=== PATIENT | male | born 1940 | race Caucasian/White ===

== ENCOUNTER → 2017-09-08 | Outpatient (CLI) | payer OTHER ==
[~2017-09-08] MED LIST: ALTACE2.5 MG PO; ASPIR-TRIN325 M1 PO; BAYER ASPIRIN325 M1 PO; CENTRUM COMPLE1 EACH PO; COLACE100 MG PO; DELTASONE20 MG PO; LIPITOR80 MG PO; METOPROLOL SUCC25 MG PO; OMEGA 3-6-91200 MG PO; OMEPRAZOLE20 M3 PO; PERCOCET 5/31 TABLET PO; STOOL SOFTENER1 EACH PO; Toprol XL PO; Tylenol Regular Stre PO; ZETIA10 MG PO; ZITHROMAX250 MG PO
== END | disposition home or self-care (01) ==
LOC: CDC 11:25
DX: Z01.810 Encounter for preprocedural cardiovascular examination (principal); R19.5 Other fecal abnormalities; K30 Functional dyspepsia; K64.8 Other hemorrhoids; K59.00 Constipation, unspecified; I49.1 Atrial premature depolarization; R94.31 Abnormal electrocardiogram [ECG] [EKG]
CPT/HCPCS: 93000

== ENCOUNTER 2018-05-13 22:38 | Emergency (ER) | payer OTHER ==
[~2018-05-13] VITALS: Ht 182.9 cm; Wt 94.2 kg
[2018-05-13 23:00] LABS: HEMATOCRIT 42.5 % (38.0-50.0); HEMOGLOBIN 14.8 G/DL (12.5-16.6); MCH 31.2 PG (29.0-34.0); MCHC 34.8 G/DL (30.0-36.0); MCV 89.5 FL (86-99); PLATELET COUNT 215 K/uL (156-360); RBC DIS.WIDTH-CV 12.8 % (11.8-14.6); RBC DIS.WIDTH-SD 42.1 % (39-53); RED BLOOD COUNT 4.75 M/uL (4.00-5.50); WHITE BLOOD COUNT 7.8 K/uL (4.1-10.2)
[2018-05-13 23:10] LABS: ALBUMIN 4.1 g/dL (3.2-4.8)
[2018-05-13 23:13] LABS: TOTAL PROTEIN 7.3 g/dL (6.4-8.3)
[2018-05-13 23:14] LABS: TOTAL BILIRUBIN 0.7 mg/dL (0.0-1.0)
[2018-05-13 23:16] LABS: ALKALINE PHOSPHATASE 98 IU/L (3-129)
[2018-05-13 23:18] LABS: AST (GOT) 24 IU/L (2-34); DIRECT BILIRUBIN 0.3 mg/dL (0.0-0.3)
[2018-05-13 23:19] LABS: ALT (GPT) 22 IU/L (3-49); LIPASE 25 U/L (1.0-51.0)
[2018-05-13 23:21] LABS: TROP-I INTERPRETATION NEGATIVE; TROPONIN-I 0.01 ng/mL (0.0-0.30)
[2018-05-14] MEDS ORDERED: PREPARATION H1 EAC2 TP (00:12)
[2018-05-14] MEDS ORDERED: COLACE100 MG PO (00:12)
[2018-05-14 02:17] VITALS: BP 131/69
== END 2018-05-14 02:45 | disposition home or self-care (01) ==
LOC: EME → EDBD 22:38 → EME 22:38
PROVIDERS: Emergency Medicine
DX: K59.00 Constipation, unspecified (principal); K64.9 Unspecified hemorrhoids; I10 Essential (primary) hypertension; E78.5 Hyperlipidemia, unspecified; K21.9 Gastro-esophageal reflux disease without esophagitis; I25.2 Old myocardial infarction; Z79.82 Long term (current) use of aspirin; Z87.891 Personal history of nicotine dependence; Z85.9 Personal history of malignant neoplasm, unspecified; Z95.1 Presence of aortocoronary bypass graft
CPT/HCPCS: 74022; 80076; 83690; 84484; 85027; 93005; 99281; 99284